=== PATIENT | female | born 1995 | race Caucasian/White ===

== ENCOUNTER 2025-02-25 12:48 | Outpatient (CLI) | payer BC | END 2025-02-25 12:49 | disposition home or self-care (01) | LOC: CSHMRI 12:48 | PROVIDERS: ATTEND Specialist | DX: C50.912 Malignant neoplasm of unspecified site of left female breast (principal); N63.25 Unspecified lump in the left breast, overlapping quadrants | CPT/HCPCS: C8908 ==

== ENCOUNTER 2025-03-12 08:01 | Outpatient (CLI) | payer BC ==
[2025-03-12 09:18] LABS: #Basophils 0.03 10x3/uL (0.0-0.2); #Eosinophils 0.09 10x3/uL (0.0-0.5); #Monocytes 0.47 10x3/uL (0.0-1.1); #Neutrophils 1.87 10x3/uL (1.5-8.4); %Basophils 1.0 % (0.0-2.0); %Eosinophils 3.0 % (0.0-6.0); %Lymphocytes 19.1 % (18.0-47.0); %Monocytes 15.5 % (0.0-10.0); %Neutrophils 61.4 % (40.0-75.0); Hematocrit 37.9 % (34.9-44.5); Hemoglobin 12.3 g/dL (12.0-15.5); Mean Corpuscular Hemoglobin 30.4 pg (27.0-33.0); Mean Corpuscular Volume 93.8 fL (81.6-98.3); Platelet Count 166 10x3/uL (150-450); Red Blood Cell (RBC) Count 4.04 10x6/uL (3.90-5.03); White Blood Cell (WBC) Count 3.04 10x3/uL (3.5-10.5)
[2025-03-12 10:10] LABS: BHCG - Serum Negative (NEGATIVE); Pregs Control Background? CLEAR/WHITE (CLR/WHITE); Pregs Control Bar Appear? YES (CONTROL BAR)
[2025-03-12 10:15] LABS: Anion Gap 12 mmol/L (10-20); BUN (Urea Nitrogen) 12 mg/dL (7.0-18.7); Calc. Creatinine Clearance 0 mL/min (70-130); Calcium 9.5 mg/dL (7.8-10.44); Carbon Dioxide 28 mmol/L (22-29); Chloride 104 mmol/L (98-107); Glucose 91 mg/dL (70-105); Potassium 4.1 mmol/L (3.5-5.1); Sodium 140 mmol/L (136-145)
== END 2025-03-12 08:02 | disposition home or self-care (01) ==
LOC: CSHLAB 08:01
PROVIDERS: ATTEND Specialist
DX: Z01.812 Encounter for preprocedural laboratory examination (principal); C50.912 Malignant neoplasm of unspecified site of left female breast
CPT/HCPCS: 80048; 84703; 85025

== ENCOUNTER 2025-03-13 10:44 | Outpatient (CLI) | payer BC | END 2025-03-13 10:45 | disposition home or self-care (01) | LOC: CSHMAMMO 10:44 | PROVIDERS: ATTEND Specialist | DX: C50.912 Malignant neoplasm of unspecified site of left female breast (principal) | CPT/HCPCS: 19083; 96372; A4648; A9697 ==

== ENCOUNTER 2025-05-22 10:44 | Outpatient (CLI) | payer BC | END 2025-05-22 10:45 | disposition home or self-care (01) | LOC: CSHRAD 10:44 | PROVIDERS: ATTEND Internal Medicine Hematology & Oncology | DX: C50.812 Malignant neoplasm of overlapping sites of left female breast (principal) | CPT/HCPCS: 93005; 93010 ==